=== PATIENT | female | born 1995 | race Caucasian/White ===

== ENCOUNTER → 2021-01-04 | Outpatient (CLI) | payer BC ==
--- NOTE | 2021-01-04 11:18 | KCIC ---
Exam Date: 01/04/2021 10:16 AM XR HUMERUS_LT 2 VIEWS Indication: Reason: Unable to locate Nexplanon / Spl. Instructions: Pt trying to have nexplanon remov ed. / History: FINDINGS/ IMPRESSION: There is a 4.1 x 0.2 cm linear radiodensity in the soft tissues medial to the mid humeral shaft. No acute fracture or dislocation. Alignment and joint spaces are maintained. The soft tissues are o therwise within normal limits. Electronically signed by: Han Tejeda MD (01/04/2021 11:16 AM) [id number]
== END ==
LOC: KCIC 10:13
PROVIDERS: ATTEND Obstetrics & Gynecology
DX: T85.628A Displacement of other specified internal prosthetic devices, implants and grafts, initial encounter (principal)
CPT/HCPCS: 73060